=== PATIENT | female | born 1965 | race Two or more races ===

== ENCOUNTER 2020-06-04 18:31 | Emergency (ER) | payer BC, MEDICAID ==
[~2020-06-04] VITALS: Ht 154.9 cm; Wt 84.8 kg
[2020-06-04 18:38] VITALS: BP 150/89
--- NOTE | 2020-06-04 18:48 | NUR ---
Patient discharged to home in stable condition. Written and verbal after care instructions given. Patient verbalizes understanding of instruction.
== END 2020-06-04 18:48 | disposition home or self-care (01) ==
LOC: ER 18:36
DX: L03.211 Cellulitis of face (principal); E11.9 Type 2 diabetes mellitus without complications

== ENCOUNTER 2024-02-28 21:13 | Emergency (ER) | payer BC ==
[~2024-02-28] VITALS: Ht 152.4 cm; Wt 83.7 kg
[2024-02-28] MEDS ORDERED: CLONIDINE HCL 0.1 MG TABLET ONE (22:18)
[2024-02-28] MEDS: CLONIDINE HCL 0.1 MG TABLET PO ONE (22:23)
[2024-02-28 22:27] LABS: BASOPHILS # (AUTO) 0.1 K/uL (0.0-0.2); BASOPHILS % (AUTO) 1.4 % (0.0-2.0); EOSINOPHILS # (AUTO) 0.1 K/uL (0.0-0.7); EOSINOPHILS % (AUTO) 0.9 % (0.0-6.0); HEMATOCRIT 42 % (33-45); HEMOGLOBIN 14.3 g/dL (11.5-14.8); LYMPHOCYTES # (AUTO) 2.4 K/uL (0.8-4.8); LYMPHOCYTES % (AUTO) 29.5 % (20.0-44.0); MEAN CORPUSCULAR HEMOGLOBIN 30 PG (26.0-33.0); MEAN CORPUSCULAR HGB CONC 34 g/dl (31.0-36.0); MEAN CORPUSCULAR VOLUME 88 fL (82-100); MONOCYTES # (AUTO) 0.5 K/uL (0.1-1.30); MONOCYTES % (AUTO) 6.1 % (2.0-12.0); NEUTROPHILS % (AUTO) 62.1 % (43.0-81.0); PLATELET COUNT (AUTO) 192 K/uL (150-450); RED BLOOD CELL COUNT(AUTO) 4.81 MIL/uL (4.0-5.2); RED CELL DISTRIBUTION WIDTH 14.3 % (11.5-15.0)
[2024-02-28 23:07] LABS: CALCIUM, SERUM 9.2 mg/dL (8.5-10.1); CREATININE 0.9 mg/dL (0.6-1.3)
[2024-02-28 23:41] LABS: ALBUMIN 3.5 g/dL (3.4-5.0); BILIRUBIN,TOTAL 0.3 mg/dL (0.2-1.0)
[2024-02-28 23:42] LABS: TOTAL PROTEIN, SERUM 7.6 g/dL (6.4-8.2)
[2024-02-29] MEDS ORDERED: AMLO5TAB4 PO (00:36)
[2024-02-29 00:47] VITALS: BP 145/89; TEMP 98.2; O2SAT 98
== END 2024-02-29 00:47 | disposition home or self-care (01) ==
LOC: EDUNIT# 21:13 → ER 21:18
DX: H11.32 Conjunctival hemorrhage, left eye (principal); R94.31 Abnormal electrocardiogram [ECG] [EKG]
CPT/HCPCS: 36415; 70450-TC; 80053-TC; 83880; 84484-TC; 85025-TC

== ENCOUNTER 2024-10-03 15:12 | Emergency (ER) | payer BC ==
[~2024-10-03] VITALS: Ht 152.4 cm; Wt 87.1 kg
[~2024-10-03 15:12] MED LIST: AMLO5TAB4 PO
[2024-10-03 15:36] VITALS: BP 152/97; TEMP 98.4
[2024-10-03] MEDS ORDERED: BENZ-13 PO (16:44)
[2024-10-03] MEDS ORDERED: ALBU18HF2 INH (16:44)
[2024-10-03] MEDS ORDERED: BENZONATATE 100 MG CAPSULE PO ONE (17:07)
[2024-10-03] MEDS ORDERED: PSEUDOEPHEDRINE HCL 30 MG TABLET ONE (17:08)
[2024-10-03] MEDS: PSEUDOEPHEDRINE HCL 30 MG TABLET PO ONE (17:10)
[2024-10-03] MEDS: BENZONATATE 100 MG CAPSULE PO PRN (17:11)
[2024-10-03 17:17] VITALS: O2SAT 98
== END 2024-10-03 17:19 | disposition home or self-care (01) ==
LOC: ER 15:17
DX: R05.9 Cough, unspecified (principal); Z79.899 Other long term (current) drug therapy
CPT/HCPCS: 71045-TC

== ENCOUNTER 2025-01-17 10:06 | Emergency (ER) | payer BC ==
[~2025-01-17] VITALS: Ht 154.9 cm; Wt 89.4 kg
[~2025-01-17 10:06] MED LIST changes: +ALBU18HF2 INH; +BENZ-13 PO
[2025-01-17 10:11] VITALS: BP 147/96; TEMP 98.1
[2025-01-17 10:41] LABS: APPEARANCE,URINE TURBID (CLEAR); BILIRUBIN,URINE NEGATIVE (NEGATIVE); BLOOD, URINE 3+ Ery/uL (NEGATIVE); COLOR,URINE DARK YELLOW (YELLOW); KETONES,URINE NEGATIVE (NEGATIVE); LEUKOCYTE ESTERASE ,URINE 2+ (NEGATIVE); NITRITE, URINE POSITIVE (NEGATIVE); PROTEIN,URINE 3+ mg/dl (NEGATIVE); UGLUCOSE TRACE mg/dL (NEGATIVE)
[2025-01-17 10:43] LABS: PREGNANCY TEST URINE QUAL NEGATIVE (NEGATIVE)
[2025-01-17] MEDS ORDERED: CEPH-570 PO (10:43)
[2025-01-17 10:48] VITALS: O2SAT 98
[2025-01-17 10:52] LABS: ADD URINE CULTURE YES; BACTERIA,URINE Few /HPF (None Seen); MUCUS,URINE Few /LPF (None Seen); RBC,URINE TOO NUMEROUS TO COUN /HPF (0-2); WBC,URINE 51-80 /HPF (0-3)
== END 2025-01-17 10:49 | disposition home or self-care (01) ==
LOC: ER 10:09
DX: N39.0 Urinary tract infection, site not specified (principal); R30.0 Dysuria; R31.9 Hematuria, unspecified; Z79.899 Other long term (current) drug therapy
CPT/HCPCS: 81001; 82962-TC; 84703-TC; 87086-TC

== ENCOUNTER 2025-06-13 19:12 | Emergency (ER) | payer BC ==
[~2025-06-13] VITALS: Ht 157.5 cm; Wt 83.9 kg
[~2025-06-13 19:12] MED LIST changes: +CEPH-570 PO
[2025-06-13 20:17] VITALS: BP 146/81; TEMP 98.5; O2SAT 98
[2025-06-13] MEDS ORDERED: ACETAMINOPHEN ES 500 MG TABLET ONE (21:15)
[2025-06-13] MEDS ORDERED: IBUPROFEN 600 MG TABLET ONE (21:15)
[2025-06-13] MEDS: ACETAMINOPHEN ES 500 MG TABLET PO ONE (21:16)
[2025-06-13] MEDS: IBUPROFEN 600 MG TABLET PO ONE (21:16)
[2025-06-13] MEDS ORDERED: IBUP-1490 PO (21:41)
== END 2025-06-13 21:47 | disposition home or self-care (01) ==
LOC: ER 19:15
DX: H11.31 Conjunctival hemorrhage, right eye (principal); G44.209 Tension-type headache, unspecified, not intractable; Z79.899 Other long term (current) drug therapy